=== PATIENT | male | born 1950 | race Caucasian/White ===

== ENCOUNTER 2016-04-04 15:01 | Emergency (ER) | payer BC ==
[~2016-04-04] VITALS: Ht 182.9 cm; Wt 77.1 kg
[2016-04-04 15:15] VITALS: BP 138/85; PULSE 75; RESP 16; TEMP 97.3; O2SAT 99
--- NOTE | 2016-04-04 15:55 | NUR ---
PT. PLACED IN BED 3, SIDERAILS UP BED ALL THE WAY DOWN, REPORT RECEIVED FROM LISE FONTANEZ
--- NOTE | 2016-04-04 16:00 | NUR ---
Note sarkis in EDM - 04/04/16 at 2119 by RONEY PT. TO THE ER AMBULATORY AAOx4 C/O OF PAIN IN LEFT RIB AREA, STATES THAT HE SLIPPED AND FELL INJURY TO LEFT RIBS WHILE LANDED ON STAIRS, PAIN 10/10, DENIES SOB, CAP REFIL <3 SECS ON ALL EXTREMITIES, NO BLEEDING OR SWELLING AT SITE, CLEAR SPEECH, PULSES WNL
--- NOTE | 2016-04-04 16:05 | NUR ---
DR. BECERRA AT BEDSIDE EXAMINING THE PT.
[2016-04-04] MEDS ORDERED: fentaNYL CITRATE/PF 100 MCG/2 ML AMP IM ONE (17:15)
[2016-04-04] MEDS ORDERED: KETOROLAC TROMETHAMINE 60 MG/2 ML VIAL IM ONE (17:15)
[2016-04-04] MEDS ORDERED: ONDANSETRON 4 MG ODT TAB PO ONE (17:15)
--- NOTE | 2016-04-04 18:20 | NUR ---
Patient given written and verbal discharge instructions and verbalizes understanding. ER MD discussed with patient the results and treatment provided. Given copies of tests performed in ER. Patient in stable condition. ID arm band removed. Rx of [place], motrin given. Patient educated on pain management and to follow up with PMD. Pain Scale 0/10. Opportunity for questions provided and answered.
[2016-04-04 18:21] VITALS: BP 142/101; PULSE 71; RESP 16; O2SAT 98
== END 2016-04-04 18:21 | disposition home or self-care (01) ==
LOC: SED 15:02
DX: S22.32XA Fracture of one rib, left side, initial encounter for closed fracture (principal); E78.00 Pure hypercholesterolemia, unspecified; C61 Malignant neoplasm of prostate; W01.198A Fall on same level from slipping, tripping and stumbling with subsequent striking against other object, initial encounter; Y93.01 Activity, walking, marching and hiking; Y92.89 Other specified places as the place of occurrence of the external cause; Y99.8 Other external cause status
CPT/HCPCS: 71020; 71100; 96372; 99284; J1885; J3010; Q0162

== ENCOUNTER 2019-02-27 12:17 | Emergency (ER) | payer OTHER, MEDICARE ==
[~2019-02-27] VITALS: Ht 182.9 cm; Wt 74.8 kg
[2019-02-27 12:20] VITALS: BP_SYST 125
[2019-02-27] MEDS ORDERED: KETOROLAC TROMETHAMINE 60 MG/2 ML VIAL IM ONE (14:00)
[2019-02-27 15:20] VITALS: BP_SYST 124
== END 2019-02-27 15:20 | disposition home or self-care (01) ==
LOC: SED 12:17
DX: J10.1 Influenza due to other identified influenza virus with other respiratory manifestations (principal); G44.209 Tension-type headache, unspecified, not intractable; J40 Bronchitis, not specified as acute or chronic; E78.00 Pure hypercholesterolemia, unspecified
CPT/HCPCS: 86710; 96372; 99283; J1885; 36415